=== PATIENT | male | born 1990 | race Caucasian/White ===

== ENCOUNTER → 2016-12-27 | Outpatient (CLI) | payer BC | LOC: CIMAGING 16:44 | PROVIDERS: ATTEND Podiatrist | DX: M72.2 Plantar fascial fibromatosis (principal); M20.11 Hallux valgus (acquired), right foot; M20.12 Hallux valgus (acquired), left foot; M77.51 Other enthesopathy of right foot and ankle | CPT/HCPCS: 73630-PO ==